=== PATIENT | male | born 1960 | race Caucasian/White ===

== ENCOUNTER 2016-10-10 09:52 | Day surgery (SDC) | payer OTHER ==
[~2016-10-10] VITALS: Ht 182.9 cm; Wt 89.4 kg
[~2016-10-10 09:52] MED LIST: LIPITOR20 MG PO; LO-DOSE ASPIRIN81 M2 PO
== END 2016-10-10 17:00 | disposition home or self-care (01) ==
LOC: CATH 09:52
DX: R94.39 Abnormal result of other cardiovascular function study (principal); I25.10 Atherosclerotic heart disease of native coronary artery without angina pectoris; I25.5 Ischemic cardiomyopathy; E78.5 Hyperlipidemia, unspecified; I73.9 Peripheral vascular disease, unspecified; I10 Essential (primary) hypertension
CPT/HCPCS: C1769; C1887; J1644; J2250; J3010; J7050

== ENCOUNTER 2017-12-01 20:38 | Inpatient (IN) | payer OTHER ==
[~2017-12-01] VITALS: Ht 182.9 cm; Wt 98.1 kg
[~2017-12-01 20:38] MED LIST changes: -ATORVASTATIN CA20 MG PO; -CARVEDILOL3.125 MG PO; -FLONASE16 G1 BOTH NARES; -LISINOPRIL5 MG PO; -PRADAXA150 MG PO
[2017-12-01 21:12] LABS: HEMATOCRIT 48.9 % (38.0-50.0); HEMOGLOBIN 17.3 G/DL (12.5-16.6); MCH 31.9 PG (29.0-34.0); MCHC 35.4 G/DL (30.0-36.0); MCV 90.2 FL (86-99); PLATELET COUNT 230 K/uL (156-360); RBC DIS.WIDTH-CV 12.3 % (11.8-14.6); RBC DIS.WIDTH-SD 40.4 % (39-53); RED BLOOD COUNT 5.42 M/uL (4.00-5.50); WHITE BLOOD COUNT 11.1 K/uL (4.1-10.2)
[2017-12-01 21:25] LABS: ALBUMIN 4.3 g/dL (3.2-4.8); CHLORIDE 101 mEq/L (99-109); POTASSIUM 4.1 mEq/L (3.7-5.4); SODIUM 134 mEq/L (136-147)
[2017-12-01 21:28] LABS: GLUCOSE 103 mg/dL (70-99); TOTAL PROTEIN 8.1 g/dL (6.4-8.3)
[2017-12-01 21:30] LABS: TOTAL BILIRUBIN 0.7 mg/dL (0.0-1.0)
[2017-12-01 21:31] LABS: ALKALINE PHOSPHATASE 99 IU/L (3-129); CREATININE 1.1 mg/dL (0.6-1.3); GFR ESTIMATE (CALCULATED) > 59 mL/min/ (58.99-99999)
[2017-12-01 21:32] LABS: UREA NITROGEN (BUN) 16 mg/dL (9-23)
[2017-12-01 21:33] LABS: AST (GOT) 29 IU/L (2-34)
[2017-12-01 21:34] LABS: ALT (GPT) 28 IU/L (3-49)
[2017-12-02] MEDS ORDERED: ATORVASTATIN CA20 MG PO (00:04)
[2017-12-02] MEDS ORDERED: LISINOPRIL5 MG PO (00:05)
[2017-12-02] MEDS ORDERED: CARVEDILOL3.125 MG PO (00:06)
[2017-12-02 00:32] LABS: INTER. NORMALIZED RATIO 1.1
[2017-12-02 00:34] LABS: PTT 29.8 SEC (25-37)
[2017-12-02 04:51] LABS: HEMATOCRIT 44.7 % (38.0-50.0); HEMOGLOBIN 15.7 G/DL (12.5-16.6); MCHC 35.1 G/DL (30.0-36.0); PLATELET COUNT 220 K/uL (156-360); RBC DIS.WIDTH-CV 12.3 % (11.8-14.6); RBC DIS.WIDTH-SD 40.7 % (39-53); RED BLOOD COUNT 4.91 M/uL (4.00-5.50)
[2017-12-02 05:03] LABS: CHLORIDE 100 mEq/L (99-109); POTASSIUM 3.9 mEq/L (3.7-5.4); SODIUM 134 mEq/L (136-147)
[2017-12-02 05:05] LABS: GLUCOSE 114 mg/dL (70-99)
[2017-12-02 05:09] LABS: CREATININE 1.2 mg/dL (0.6-1.3); GFR ESTIMATE (CALCULATED) > 59 mL/min/ (58.99-99999); UREA NITROGEN (BUN) 15 mg/dL (9-23)
[2017-12-02] MEDS ORDERED: FLONASE16 G1 BOTH NARES (08:25)
[2017-12-02 10:27] LABS: APPEARANCE CLEAR ((CLEAR)); BILIRUBIN NEGATIVE; BLOOD NEGATIVE; COLOR YELLOW ((YELLOW)); GLUCOSE (STRIP) NEGATIVE; KETONES NEGATIVE; LEUKOCYTES NEGATIVE; NITRITE NEGATIVE; PROTEIN (STRIP) NEGATIVE; SPECIFIC GRAVITY 1.045 (1.000-1.030); UCUL ADDED? NO; UROBILINOGEN 0.2 MG/DL (0.2-1.0)
[2017-12-02 19:36] VITALS: BP 121/77
[2017-12-02 21:23] VITALS: BP 118/68
[2017-12-03 00:30] VITALS: BP 112/66
[2017-12-03 04:31] VITALS: BP 119/61
[2017-12-03 08:08] VITALS: BP 113/65
[2017-12-03 10:00] LABS: ALBUMIN 3.6 G/DL (3.2-4.8); ALKALINE PHOSPHATASE 79 IU/L (3-129); ALT (GPT) 17 IU/L (3-49); AST (GOT) 28 IU/L (2-34); CHLORIDE 107 MEQ/L (99-109); CREATININE 1.1 MG/DL (0.6-1.3); GFR ESTIMATE (CALCULATED) > 59 mL/min/ (58.99-99999); GLUCOSE 127 mg/dL (70-99); POTASSIUM 3.8 MEQ/L (3.7-5.4); SODIUM 137 MEQ/L (136-147); TOTAL BILIRUBIN 0.3 MG/DL (0.0-1.0); TOTAL PROTEIN 6.2 G/DL (6.4-8.3); UREA NITROGEN (BUN) 17 mg/dL (9-23)
[2017-12-03 10:56] VITALS: BP 122/66
[2017-12-03 11:41] LABS: CREATINE KINASE 1400 IU/L (1-294)
[2017-12-03 14:26] LABS: INTER. NORMALIZED RATIO 1.1
[2017-12-03 14:29] LABS: PTT 49.6 SEC (25-37)
[2017-12-03 14:48] VITALS: BP 116/65
[2017-12-03 19:55] VITALS: BP 126/72
[2017-12-04 00:05] VITALS: BP 113/72
[2017-12-04 04:54] VITALS: BP 131/84
[2017-12-04 07:36] VITALS: BP 140/68
[2017-12-04 10:34] VITALS: BP 131/74
[2017-12-04] MEDS ORDERED: PRADAXA150 MG PO (12:03)
== END 2017-12-04 13:09 | disposition home or self-care (01) | DRG 254 ==
LOC: EME 20:38 → 4EAST 12-02 03:02 → EDOF 12-02 03:02 → ENRESERV 12-02 03:04 → EDOF 12-02 07:39 → ENRESERV 12-02 16:30 → 4EAST 12-02 19:08
PROVIDERS: Emergency Medicine; Hospitalist; Internal Medicine; Surgery
DX: I70.221 Atherosclerosis of native arteries of extremities with rest pain, right leg (principal); I25.10 Atherosclerotic heart disease of native coronary artery without angina pectoris; I25.5 Ischemic cardiomyopathy; I10 Essential (primary) hypertension; E78.5 Hyperlipidemia, unspecified; I25.82 Chronic total occlusion of coronary artery; I25.2 Old myocardial infarction; I70.8 Atherosclerosis of other arteries; Z79.82 Long term (current) use of aspirin; F17.210 Nicotine dependence, cigarettes, uncomplicated; Z80.1 Family history of malignant neoplasm of trachea, bronchus and lung; Z82.49 Family history of ischemic heart disease and other diseases of the circulatory system
CPT/HCPCS: 75635; 80048; 80053; 81003; 82550; 82550 91; 83605; 85027; 85610; 85730; 93926; 97530 GO; 97530 GP; 99281; 99285; C1725; C1760; C1769; C1887; C1894; J1644; J2250; J2270; J7030

== ENCOUNTER → 2017-12-01 | Outpatient (CLI) | payer OTHER ==
[~2017-12-01] MED LIST changes: +ATORVASTATIN CA20 MG PO; +CARVEDILOL3.125 MG PO; +FLONASE16 G1 BOTH NARES; +LISINOPRIL5 MG PO; +PRADAXA150 MG PO
== END | disposition home or self-care (01) ==
LOC: RAD 16:57
DX: I74.3 Embolism and thrombosis of arteries of the lower extremities (principal); I70.201 Unspecified atherosclerosis of native arteries of extremities, right leg; R93.6 Abnormal findings on diagnostic imaging of limbs
CPT/HCPCS: 93926

== ENCOUNTER → 2018-01-02 | Outpatient (CLI) | payer OTHER ==
[~2018-01-02] MED LIST changes: +ATORVASTATIN CA20 MG PO; +CARVEDILOL3.125 MG PO; +FLONASE16 G1 BOTH NARES; +LISINOPRIL5 MG PO; +PRADAXA150 MG PO
== END | disposition home or self-care (01) ==
LOC: CDC 14:51
DX: Z01.810 Encounter for preprocedural cardiovascular examination (principal); R94.31 Abnormal electrocardiogram [ECG] [EKG]
CPT/HCPCS: 93000

== ENCOUNTER 2018-01-07 15:40 | Observation (INO) | payer OTHER ==
[~2018-01-07] VITALS: Ht 182.9 cm; Wt 82.1 kg
[2018-01-07 17:33] LABS: HEMATOCRIT 37.5 % (38.0-50.0); MCH 31.1 PG (29.0-34.0); MCHC 34.4 G/DL (30.0-36.0); MCV 90.4 FL (86-99); PLATELET COUNT 280 K/uL (156-360); RBC DIS.WIDTH-SD 40.1 % (39-53); WHITE BLOOD COUNT 14.1 K/uL (4.1-10.2)
[2018-01-07 17:41] LABS: ALBUMIN 3.5 g/dL (3.2-4.8); CHLORIDE 100 mEq/L (99-109); SODIUM 136 mEq/L (136-147)
[2018-01-07 17:43] LABS: GLUCOSE 137 mg/dL (70-99)
[2018-01-07 17:44] LABS: TOTAL PROTEIN 7.1 g/dL (6.4-8.3)
[2018-01-07 17:45] LABS: TOTAL BILIRUBIN 0.5 mg/dL (0.0-1.0)
[2018-01-07 17:47] LABS: ALKALINE PHOSPHATASE 84 IU/L (3-129); CREATININE 1.1 mg/dL (0.6-1.3); GFR ESTIMATE (CALCULATED) > 59 mL/min/ (58.99-99999)
[2018-01-07 17:48] LABS: UREA NITROGEN (BUN) 18 mg/dL (9-23)
[2018-01-07 17:49] LABS: AST (GOT) 13 IU/L (2-34)
[2018-01-07 17:50] LABS: ALT (GPT) 20 IU/L (3-49)
[2018-01-07 17:52] LABS: INTER. NORMALIZED RATIO 1.5
[2018-01-07 17:55] LABS: PTT 39.4 SEC (25-37)
[2018-01-07 18:00] LABS: HEMOGLOBIN 12.9 G/DL (12.5-16.6); RED BLOOD COUNT 4.15 M/uL (4.00-5.50)
[2018-01-07 18:08] LABS: POTASSIUM 3.8 mEq/L (3.7-5.4)
[2018-01-07] MEDS ORDERED: PLAVIX75 MG PO (21:31)
[2018-01-08] VITALS (8 sets, daily range): BP systolic 92–123; BP diastolic 52–70
[2018-01-08 05:51] LABS: HEMATOCRIT 35.5 % (38.0-50.0); MCH 30.8 PG (29.0-34.0); MCHC 33.8 G/DL (30.0-36.0); MCV 91.3 FL (86-99); PLATELET COUNT 295 K/uL (156-360); RBC DIS.WIDTH-CV 12.1 % (11.8-14.6); RBC DIS.WIDTH-SD 40.2 % (39-53); RED BLOOD COUNT 3.89 M/uL (4.00-5.50); WHITE BLOOD COUNT 12.4 K/uL (4.1-10.2)
[2018-01-08 06:11] LABS: CHLORIDE 99 MEQ/L (99-109); CREATININE 1.1 MG/DL (0.6-1.3); GFR ESTIMATE (CALCULATED) > 59 mL/min/ (58.99-99999); GLUCOSE 140 mg/dL (70-99); POTASSIUM 4.1 MEQ/L (3.7-5.4); SODIUM 134 MEQ/L (136-147); UREA NITROGEN (BUN) 17 mg/dL (9-23)
[2018-01-09 01:11] LABS: APPEARANCE CLEAR ((CLEAR)); BILIRUBIN NEGATIVE; BLOOD SMALL; COLOR YELLOW ((YELLOW)); GLUCOSE (STRIP) NEGATIVE; KETONES NEGATIVE; LEUKOCYTES NEGATIVE; NITRITE NEGATIVE; PROTEIN (STRIP) NEGATIVE; SPECIFIC GRAVITY 1.014 (1.000-1.030); UROBILINOGEN 0.2 MG/DL (0.2-1.0)
[2018-01-09 01:17] LABS: BACTERIA NONE SEEN /HPF; EPITHELIAL CELLS RARE /HPF; MUCUS NONE SEEN /LPF; RED BLOOD CELLS 0-5 /HPF (0-5); UCUL ADDED? NO; WHITE BLOOD CELLS 0-5 /HPF (0-5)
[2018-01-09 03:45] VITALS: BP 117/58
[2018-01-09 07:15] VITALS: BP 110/59
[2018-01-09] MEDS ORDERED: AZITHROMYCIN500 M1 PO (10:25)
[2018-01-09] MEDS ORDERED: DOCUSATE SODIU100 MG PO (10:25)
[2018-01-09] MEDS ORDERED: OXYCODONE-APAP1 EACH PO (10:25)
[2018-01-09 11:04] VITALS: BP 104/59
== END 2018-01-09 12:35 | disposition home or self-care (01) ==
LOC: EME 15:40 → EDOF 22:36 → ENRESERV 22:37 → 4SOUTH 01-08 → ENPENDDIS 01-09 → 4SOUTH 01-09 12:35
PROVIDERS: Emergency Medicine Emergency Medical Services; Hospitalist; Physician Assistant Medical
DX: R78.81 Bacteremia (principal); I97.638 Postprocedural hematoma of a circulatory system organ or structure following other circulatory system procedure; I73.9 Peripheral vascular disease, unspecified; Z95.820 Peripheral vascular angioplasty status with implants and grafts; I25.10 Atherosclerotic heart disease of native coronary artery without angina pectoris; I10 Essential (primary) hypertension; E78.5 Hyperlipidemia, unspecified; F17.200 Nicotine dependence, unspecified, uncomplicated; Z79.82 Long term (current) use of aspirin; Z79.02 Long term (current) use of antithrombotics/antiplatelets; Z88.0 Allergy status to penicillin; Z80.1 Family history of malignant neoplasm of trachea, bronchus and lung
CPT/HCPCS: 71045; 71250; 74176; 80048; 80053; 81003; 85027; 85610; 85730; 87040; 87077; 87186; 87801; 93005; 99281; 99284; G0378; J3010; J3370